=== PATIENT | male | born 1975 | race Two or more races ===

== ENCOUNTER 2024-10-19 14:32 | Emergency (ER) | payer MEDICAID ==
[~2024-10-19] VITALS: Ht 177.8 cm; Wt 90.0 kg
[2024-10-19 14:44] VITALS: O2SAT 100
[2024-10-19] MEDS: LIDOCAINE HCL 1% 20ML VIAL INFIL ONE (15:02)
[2024-10-19] MEDS: TETANUS, DIPHTHERIA, PERTUSSIS VAC/PF 0.5ML (>10YR OLD) IM ONE (15:02)
[2024-10-19 15:04] LABS: BASOPHILS % 0.7 % (0.0-2.0); EOSINOPHILS % 0.4 % (0.0-5.0); HEMATOCRIT. 46.4 % (42.0-52.0); HEMOGLOBIN. 15.5 g/dL (14.0-18.0); LYMPHOCYTES % 15.5 % (20.0-50.0); MEAN CORPUSCULAR HEMOGLOBIN 27.4 pg (28.0-32.0); MEAN CORPUSCULAR HGB CONC 33.4 g/dL (31.0-37.0); MEAN PLATELET VOLUME 7.6 fl (7.4-10.4); MONOCYTES % 11.8 % (2.0-8.0); NEUTROPHILS % 71.6 % (40.0-76.0); PLATELET 379 x1000/uL (130-400); RED BLOOD CELL COUNT 5.66 mill/uL (4.7-6.1); RED CELL DISTRIBUTION WIDTH 15.6 % (11.6-14.6); WHITE BLOOD COUNT 12.7 x1000/uL (4.5-11.0)
[2024-10-19 15:08] LABS: CHLORIDE 106 mEq/L (98-107); POTASSIUM 3.9 mEq/L (3.5-5.1); SODIUM 139 mEq/L (136-145)
[2024-10-19 15:09] LABS: CALCIUM 9.3 mg/dL (8.7-10.4); CARBON DIOXIDE 27 mEq/L (21-32)
[2024-10-19 15:12] LABS: INR 0.9; PARTIAL THROMBOPLASTIN TIME 27.9 sec (23.4-31.0); PROTHROMBIN TIME 10.3 sec (9.6-11.0)
[2024-10-19 15:14] LABS: CREATININE 1.1 mg/dL (0.6-1.3); GLUCOSE 88 mg/dL (70-105); UREA NITROGEN BLOOD 18 mg/dL (9-23)
[2024-10-19] MEDS: CEFAZOLIN 1000MG PREMIX 50 ML IV ONE (15:14)
[2024-10-19 15:27] LABS: ETHANOL BLOOD < 10 mg/dL (<10); TROPONIN I HIGH SENSITIVITY 1364 ng/L (3.0-53)
[2024-10-19 18:07] VITALS: BP 131/83; PULSE 97; RESP 17; O2SAT 97
== END 2024-10-19 18:06 | disposition short-term general hospital (02) ==
LOC: ER 14:32 → EDBD 14:32 → EDBEDREQ 14:50 → ER 18:06
DX: S41.112A Laceration without foreign body of left upper arm, initial encounter (principal); W45.8XXA Other foreign body or object entering through skin, initial encounter; Y93.89 Activity, other specified; Y92.89 Other specified places as the place of occurrence of the external cause; Y99.8 Other external cause status
CPT/HCPCS: 80048; 80320; 85025; 85610; 85730; 86850; 86900; 86901; 87040; 84484; 36415; 71045; 71260; 90715; 12001; 90471; 96365; 99291; J0690; J3490; Z7610; G0480